=== PATIENT | female | born 1950 | race Caucasian/White ===

== ENCOUNTER → 2024-03-31 11:49 | Outpatient (CLI) | payer MEDICARE, SELFPAY ==
--- NOTE | 2024-03-31 11:50 | DI.CT.S_ITS ---
PROCEDURE: CT CHEST HIGH RESOLUTION INDICATIONS: Rule out ILD TECHNIQUE: Noncontrast 1.0 and 5.0 mm thick contiguous axial sections from the pulmonary apex to the posterior costophrenic angles, with 7 mm thick coronal and sagittal MIP reformats. 1 mm thick dynamic expiratory images acquired through the upper, mid, and lower lungs. 1.0 mm thick axial sections acquired from the elizabeth to the posterior costophrenic angles in the prone end-inspiration position. For radiation dose reduction, the following was used: automated exposure control, adjustment of mA and/or kV according to patient size. COMPARISON: None. FINDINGS: Image quality: Diagnostic. Lower Neck: No enlarged lymph nodes. Thyroid: No thyroid nodules which require sonographic follow up, per consensus guidelines. Axillae: No enlarged lymph nodes. Chest Wall: Left breast lumpectomy, with ill-defined soft tissue attenuation in the surgical bed, presumably postsurgical. Bones: Unremarkable. Lungs and Pleura: No pneumothorax or pleural effusions. No significant peripheral reticulation. Diffuse air trapping. Atelectasis in the lingula. Mild smooth interstitial thickening. Heart: Heart size is normal. No pericardial effusion. Thoracic Vessels: The aorta and pulmonary arteries demonstrate normal size. Mediastinum and Tracy: No enlarged lymph nodes. Esophagus: No wall thickening. Large hiatal hernia. Upper Abdomen: Visualized upper abdomen solid organs and bowel loops appear normal. IMPRESSION: Diffuse air trapping, which can be seen in the setting of hypersensitivity pneumonitis or chronic small airways disease. Mild smooth interstitial thickening, suggestive of mild pulmonary edema. Large hiatal hernia. Postsurgical changes in the left breast. Dictated by: Trung Barrientos M.D. on 03/31/2024 at 16:10 Approved by: Trung Barrientos M.D. on 03/31/2024 at 16:14
== END ==
PROVIDERS: Referring Provider Internal Medicine; Visit Provider Internal Medicine
DX: K44.9 Diaphragmatic hernia without obstruction or gangrene (principal); R06.02 Shortness of breath; R05.3 Chronic cough
CPT/HCPCS: 71250